=== PATIENT | male | born 1975 | race Caucasian/White ===

== ENCOUNTER 2018-01-10 10:47 | Emergency (ER) | payer OTHER ==
[~2018-01-10] VITALS: Ht 185.4 cm; Wt 102.1 kg
[~2018-01-10 10:47] MED LIST: AMOXICILLIN875 MG PO; BIAXIN500 MG PO; CLARITIN10 MG PO; LOTREL 5 MG-101 CAP PO; Motrin,Rufen800 MG PO; TAMIFLU75 MG PO
[2018-01-10 10:51] VITALS: BP 143/105
[2018-01-10] MEDS ORDERED: DOXYCYCLINE100 M3 PO (11:19)
[2018-01-10] MEDS ORDERED: IBUPROFEN600 MG PO (11:19)
== END 2018-01-10 11:24 | disposition home or self-care (01) ==
LOC: ED 10:47
DX: H60.02 Abscess of left external ear (principal); Z79.899 Other long term (current) drug therapy; Z91.040 Latex allergy status

== ENCOUNTER 2021-11-29 11:24 | Emergency (ER) | payer SELFPAY ==
[~2021-11-29] VITALS: Ht 185.4 cm; Wt 95.3 kg
[~2021-11-29 11:24] MED LIST changes: +DOXYCYCLINE100 M3 PO; +IBUPROFEN600 MG PO
[2021-11-29 11:29] VITALS: BP 146/97
[2021-11-29] MEDS ORDERED: PREDNISONE20 M1 PO (12:36)
== END 2021-11-29 12:52 | disposition left against medical advice (07) ==
LOC: ED 11:24
DX: S00.83XA Contusion of other part of head, initial encounter (principal); L23.7 Allergic contact dermatitis due to plants, except food; Z91.040 Latex allergy status; Z79.899 Other long term (current) drug therapy; W18.39XA Other fall on same level, initial encounter; Y93.89 Activity, other specified; Y92.89 Other specified places as the place of occurrence of the external cause; Y99.8 Other external cause status

== ENCOUNTER 2023-03-05 14:10 | Emergency (ER) | payer OTHER ==
[~2023-03-05] VITALS: Ht 185.4 cm; Wt 90.7 kg
[~2023-03-05 14:10] MED LIST changes: +PREDNISONE20 M1 PO
[2023-03-05 14:19] VITALS: BP 157/101
== END 2023-03-05 16:30 | disposition left against medical advice (07) ==
LOC: ED 14:10
DX: M54.2 Cervicalgia (principal); R13.10 Dysphagia, unspecified; Z53.21 Procedure and treatment not carried out due to patient leaving prior to being seen by health care provider

== ENCOUNTER → 2023-04-12 | Outpatient (CLI) | payer OTHER | END | disposition home or self-care (01) | LOC: CT 16:00 | PROVIDERS: ATTEND Chiropractor Orthopedic | DX: M47.22 Other spondylosis with radiculopathy, cervical region (principal); M48.02 Spinal stenosis, cervical region ==

== ENCOUNTER → 2023-05-01 | Outpatient (CLI) | payer OTHER | END | disposition home or self-care (01) | LOC: MRI 01:25 | PROVIDERS: ATTEND Chiropractor Orthopedic | DX: M47.22 Other spondylosis with radiculopathy, cervical region (principal); M48.02 Spinal stenosis, cervical region; M25.78 Osteophyte, vertebrae ==

== ENCOUNTER 2023-07-14 13:47 | Emergency (ER) | payer OTHER ==
[~2023-07-14] VITALS: Ht 180.3 cm; Wt 102.1 kg
[2023-07-14] MEDS ORDERED: Acetaminophen/Oxycodone 5 MG/325 MG TABLET PO ONE (14:10)
[2023-07-14] MEDS ORDERED: DIAZEPAM 5 MG TAB PO ONE (14:10)
[2023-07-14] MEDS ORDERED: BUPRENORPHINE HCL/NALOXONE 8 MG-2 MG SL TABLET SL ONE (14:15)
[2023-07-14] MEDS ORDERED: DIAZEPAM 10 MG/2 ML SYR IV ONE (14:15)
[2023-07-14] MEDS ORDERED: SODIUM CHLORIDE 0.9% 1,000 ML IV ONE ×2 (14:15→15:25)
[2023-07-14 14:32] LABS: HEMATOCRIT 47.4 % (42.0-52.0); MEAN CELL VOLUME 88.9 fl (80.0-94.0); MEAN CORPUSCULAR HGB 29.8 pg (27.0-31.0); MEAN CORPUSCULAR HGB CONC 33.5 g/dl (33.0-37.0); MEAN PLATELET VOLUME 9.1 fl (9.6-12.3); PLATELET COUNT AUTOMATED 199 10*3/uL (130-400); RED BLOOD COUNT 5.33 10*6/uL (4.50-5.90); RED CELL DISTRI WIDTH 12.4 % (0-14.5); WHITE BLOOD COUNT 5.4 10*3/uL (4.8-10.8)
[2023-07-14 14:33] LABS: MANUAL DIFF REFLEX YES
[2023-07-14 15:05] LABS: ALKALINE PHOSPHATASE 125 U/L (46-116); BUN 10 mg/dl (9-23); CHLORIDE 103 mmol/L (98-107); POTASSIUM 3.5 mmol/L (3.4-5.1); SGPT/ALT 184 U/L (5-49); TOTAL PROTEIN 7.8 gm/dL (6.0-8.0)
[2023-07-14 15:10] LABS: ATYPICAL LYMPHS 2 % (0-0); PLATELET SUFFICIENCY NORMAL (NORMAL); TOTAL CELLS COUNTED 100 #CELLS
[2023-07-14] MEDS ORDERED: cloNIDine Hydrochloride 0.1 MG TAB PO ONE (15:10)
[2023-07-14] MEDS ORDERED: Ketorolac Tromethamine 15 MG/ML VIAL IV ONE (15:10)
[2023-07-14 15:11] LABS: POLYCHROMASIA SLIGHT
[2023-07-14 15:51] VITALS: BP 138/88
[2023-07-14] MEDS ORDERED: 'CLONIDINE0.1 MG PO (15:53)
[2023-07-14] MEDS ORDERED: IBU800 M2 PO (15:53)
[2023-07-14] MEDS ORDERED: SUBOXONE 8 MG-1 EACH BC (15:53)
== END 2023-07-14 17:46 | disposition home or self-care (01) ==
LOC: ED 13:47
PROVIDERS: Emergency Medicine
DX: M54.12 Radiculopathy, cervical region (principal); F15.10 Other stimulant abuse, uncomplicated; F11.10 Opioid abuse, uncomplicated; Z91.040 Latex allergy status

== ENCOUNTER 2023-08-20 12:37 | Emergency (ER) | payer OTHER ==
[~2023-08-20] VITALS: Ht 182.8 cm; Wt 101.2 kg
[~2023-08-20 12:37] MED LIST changes: +'CLONIDINE0.1 MG PO; +IBU800 M2 PO; +SUBOXONE 8 MG-1 EACH BC
[2023-08-20 12:47] VITALS: BP 147/99
[2023-08-20] MEDS ORDERED: NORVASC5 MG PO (12:51)
[2023-08-20] MEDS ORDERED: MAGNESIUM CITRATE 296 ML BOT PO ONE (13:05)
== END 2023-08-20 13:17 | disposition home or self-care (01) ==
LOC: ED 12:37
DX: K59.00 Constipation, unspecified (principal); I10 Essential (primary) hypertension; F32.A Depression, unspecified; F41.9 Anxiety disorder, unspecified; Z91.040 Latex allergy status; F11.10 Opioid abuse, uncomplicated